=== PATIENT | female | born 1990 | race African-American/Black ===

== ENCOUNTER 2019-01-11 08:43 | Emergency (ER) | payer MEDICAID, OTHER ==
[~2019-01-11] VITALS: Ht 167.6 cm; Wt 59.0 kg
[2019-01-11] MEDS ORDERED: LORAZEPAM 0.5MG TABLET PO ONE (10:45)
[2019-01-11 10:59] VITALS: BP 118/81
== END 2019-01-11 10:54 | disposition home or self-care (01) ==
LOC: ER 08:43
DX: F41.9 Anxiety disorder, unspecified (principal); F17.210 Nicotine dependence, cigarettes, uncomplicated
CPT/HCPCS: 99284